=== PATIENT | male | born 1990 | race Caucasian/White ===

== ENCOUNTER 2016-03-27 12:57 | Emergency (ER) | payer OTHER ==
[~2016-03-27] VITALS: Ht 172.7 cm; Wt 81.0 kg
[~2016-03-27 12:57] MED LIST: RISPERIDONE1 MG PO
[2016-03-27 13:52] LABS: EOSINOPHIL (%) 1.7 % (0-5); EOSINOPHIL COUNT 0.1 K/uL (0-0.3); HEMATOCRIT 42.1 % (38.0-50.0); IMMATURE GRANULOCYTE (%) 0.2 % (0.0-0.7); IMMATURE GRANULOCYTE COUNT 0.1 K/uL; LYMPHOCYTE COUNT 0.8 K/uL (1.0-2.8); MCH 32.2 PG (29.0-34.0); MCHC 34.2 G/DL (30.0-36.0); MCV 94.2 FL (86-99); MEAN PLAT.VOLUME 9.6 uM^3 (9.0-12.4); MONOCYTE (%) 15.5 % (3-12); MONOCYTE COUNT 0.8 K/uL (0-0.8); NEUTROPHIL (%) 67.3 % (45-76); NEUTROPHIL COUNT 3.5 K/uL (1.8-6.4); PLATELET COUNT 205 K/uL (156-360); RBC DIS.WIDTH-CV 12.2 % (11.8-14.6); RBC DIS.WIDTH-SD 41.3 % (39-53); RED BLOOD COUNT 4.47 M/uL (4.00-5.50); WHITE BLOOD COUNT 5.2 K/uL (4.1-10.2)
[2016-03-27 14:30] VITALS: BP 117/75
[2016-03-27 14:35] LABS: CHLORIDE 97 MEQ/L (99-109); POTASSIUM 4.2 MEQ/L (3.7-5.4); SODIUM 134 MEQ/L (136-147)
[2016-03-27 15:01] LABS: ALKALINE PHOSPHATASE 46 IU/L (3-129); ANION GAP 11 MEQ/L (2-14); GFR ESTIMATE (CALCULATED) > 59 mL/min/; GLUCOSE 164 mg/dL (70-99); MAGNESIUM 1.8 mg/dl (1.3-2.7); SAMPLE HEMOLYSIS CHECK 0; SAMPLE ICTERIC CHECK 0; SAMPLE LIPEMIA CHECK 0; TOTAL BILIRUBIN 0.6 MG/DL (0.0-1.0); UREA NITROGEN (BUN) 12 mg/dL (9-23)
== END 2016-03-27 15:20 | disposition home or self-care (01) ==
LOC: EME 12:57
PROVIDERS: Emergency Medicine
DX: R56.9 Unspecified convulsions (principal); E11.65 Type 2 diabetes mellitus with hyperglycemia; I10 Essential (primary) hypertension; F17.200 Nicotine dependence, unspecified, uncomplicated; Z88.1 Allergy status to other antibiotic agents
CPT/HCPCS: 70450; 80053; 83735; 85025; 93005; 99281; 99284